=== PATIENT | female | born 1965 | race Caucasian/White ===

== ENCOUNTER → 2017-01-05 | Outpatient (CLI) | payer BC ==
--- NOTE | 2017-01-05 13:04 | MAMMOGRAPHY REPORT ---
BILATERAL DIGITAL SCREENING MAMMOGRAM TOMOSYNTHESIS WITH CAD: 01/05/2017 CLINICAL HISTORY: Routine screening. Patient has no complaints. TECHNIQUE: Breast tomosynthesis in addition to standard 2D mammography was performed. Current study was also evaluated with a Computer Aided Detection (CAD) system. COMPARISON: Comparison is made to exams dated: 01/02/2016 mammogram, 12/27/2014 mammogram, 12/21/2013 m ammogram, 12/20/2012 mammogram, 12/20/2011 mammogram, and 12/17/2010 mammogram - [facility] nter. BREAST COMPOSITION: The tissue of both breasts is heterogeneously dense, which may obscure small mas ses. FINDINGS: No suspicious masses, calcifications, or areas of architectural distortion are noted in ei ther breast. There has been no significant interval change compared to prior exams. IMPRESSION: ACR BI-RADS CATEGORY 1: NEGATIVE There is no mammographic evidence of malignancy. A 1 year screening mammogram is recommended. The pa tient will receive written notification of the results. Approximately 10% of breast cancers are not detected with mammography. A negative mammographic report should not delay biopsy if a clinically suggestive mass is present. Li Colon M.D. ah/:01/05/2017 07:51:28 Stores Clerk: Veronica VERDUGO(Kathleen)([place])([place]), [facility] letter sent: Normal 1/2 BI-RADS Code: ACR BI-RADS Category 1: Negative
== END | disposition home or self-care (01) ==
LOC: C.MAMM 07:10
PROVIDERS: ATTEND Obstetrics & Gynecology
DX: Z12.31 Encounter for screening mammogram for malignant neoplasm of breast (principal)

== ENCOUNTER → 2017-11-01 | Outpatient (CLI) | payer BC ==
--- NOTE | 2017-11-01 08:25 | DIAGNOSTIC IMAGING REPORT ---
RIGHT KNEE RADIOGRAPHS WITH COMPARISON STANDING AP RADIOGRAPH OF THE LEFT KNEE CLINICAL HISTORY: Right knee pain. COMPARISON: None FINDINGS: Comparison standing AP radiograph of left knee demonstrates no abnormality. Alignment of the right knee is anatomic. No fracture or suspicious lesion is present. There is a possible small right knee joint effusion. There is mild to moderate patellofemoral joint space narrowing with mild osteophytosis. Medial and lateral compartment joint spaces are preserved. IMPRESSION: 1. No acute fracture. 2. Mild to moderate osteoarthritis of the patellofemoral compartment of the right knee. 3. Possible small right knee joint effusion. Electronically signed by: Maxime Enriquez M.D. 11/01/2017 8:24 AM Dictated Date/Time: 11/01/2017 8:18 AM
== END | disposition home or self-care (01) ==
LOC: C.RDSM 07:50
PROVIDERS: ATTEND Physical Medicine & Rehabilitation Sports Medicine
DX: M17.11 Unilateral primary osteoarthritis, right knee (principal)